=== PATIENT | female | born 2000 | race Caucasian/White ===

== ENCOUNTER 2023-10-27 12:03 | Emergency (ER) | payer BC, SELFPAY ==
[2023-10-27 12:13] VITALS: BP 121/73; PULSE 87; RESP 16; TEMP 36.3; O2SAT 98; BMI 34.4
--- NOTE | 2023-10-27 12:31 | ED_ITS ---
HPI - General Adult General Chief complaint: Urogenital Problems, Female Stated complaint: IUD falling out Time Seen by Provider: 10/27/23 12:10 History of Present Illness HPI narrative: Patient is a 23 year white female who had an IUD placed in 2021, a ParaGard copper type. The patient reported she noticed strings and has had some abnormal menstrual bleeding today and had some lower abdominal discomfort will last couple of days, she noticed this IUD strings that were external to her labial area. She would like to keep the IUD if she could. I discussed with Dr. Freddy Rao who recommended ultrasound to confirm placement. And this will be ordered. Related Data Home Medications Medication Instructions Recorded Confirmed levothyroxine 50 mcg tablet 50 mcg PO DAILY 05/21/23 05/21/23 sertraline 50 mg tablet mg PO 05/21/23 05/21/23 spironolactone 50 mg tablet 50 mg PO DAILY 05/21/23 05/21/23 bupropion HCl 75 mg tablet 75 mg PO DAILY 10/27/23 10/27/23 Previous Rx's Medication Instructions Recorded amoxicillin 500 mg capsule 1,000 mg (2 x 500 mg) PO QDAY #20 05/21/23 caps Allergies Allergy/AdvReac Type Severity Reaction Status Date / Time gluten Allergy Unknown Verified 10/27/23 12:17 Review of Systems Status of ROS: Reports: 6 or more systems reviewed and unremarkable except as noted in History and below [facility] Social History Smoking Status: Never smoker How often do you have a drink containing alcohol: monthly or less How often do you have six or more drinks on one occasion: Never AUDIT-C Alcohol total score: 1 Non-prescribed substance use: denies use Exam Narrative: Exam Narrative: Objective: Vital signs are within normal limits Bimanual exam with nurse Keren present, reveals palpable strings in the vaginal area. I do not see any external strength. She is having her menstrual cycle. The patient has no marked uterine tenderness. Const: Vital Signs, click to edit/add: Vital Signs - 24 hr 10/27/23 12:13 Temperature 97.4 F L Pulse Rate [Pulse Oximeter] 87 Respiratory Rate 16 Blood Pressure [Ri ght Upper Arm] 121/73 Pulse Oximetry 98 Oxygen Delivery Me thod Room Air Course Vital Signs Vital signs: Initial Vital Signs Temperature 97.4 F L 10/27/23 12:13 Temperature Source Temporal Artery Scan 10/27/23 12:13 Pulse Rate 87 10/27/23 12:13 Respiratory Rate 16 10/27/23 12:13 Blood Pressure 121/73 10/27/23 12:13 Blood Pressure Mean 89 10/27/23 12:13 Blood Pressure Position Sitting 10/27/23 12:13 Pulse Oximetry 98 10/27/23 12:13 Oxygen Delivery Method Room Air 10/27/23 12:13 Vital Signs Temperature 97.4 F L 10/27/23 12:13 Pulse Rate 87 10/27/23 12:13 Respiratory Rate 16 10/27/23 12:13 Blood Pressure 121/73 10/27/23 12:13 Pulse Oximetry 98 10/27/23 12:13 Oxygen Delivery Method Room Air 10/27/23 12:13 Temperature 97.4 F L 10/27/23 12:13 Pulse Rate 87 10/27/23 12:13 Respiratory Rate 16 10/27/23 12:13 Blood Pressure 121/73 10/27/23 12:13 Pulse Oximetry 98 10/27/23 12:13 Oxygen Delivery Method Room Air 10/27/23 12:13 Medical Decision Making MDM Narrative Medical decision making narrative: [age] year white female with an IUD present concerned about it is changing position or perhaps coming out. At this point discussed with OB specialist Dr. Ebonie Rao who recommended ultrasound and this will be ordered. Depending on placement. Will get a consult from OBGYN. Addendum 12:49 p.m. the patient has part of IUD in the lower uterine segment and part in the cervix. Discussed with Dr. Tyler Rao and she will come by in likely remove the IUD. Addendum 1:31 p.m.: The patient had the IUD removed by Dr. Tyler Rao. Tolerated this well. Rest observation at home. Dr. Tyler Rao recommended a test at home. They will be discharged home follow-up with digital content coordinator doctors as needed. Discharge Plan Discharge Clinical Impression: IUD complication Patient Disposition: Home w/ Parent or Adult Condition: Improved Additional Instructions: Follow-up as per appellate court clerk recommendation. Light activity, Advil as needed. Dr. Hayes recommended usual home test. Follow-up with digital content coordinator or primary care as needed for discussion of further contraceptive issues Activity Level: Light activity Discharge Diet: Regular Prescriptions: No Action sertraline 50 mg tablet PO levothyroxine 50 mcg tablet 50 mcg PO DAILY spironolactone 50 mg tablet 50 mg PO DAILY amoxicillin 500 mg capsule 1,000 mg PO QDAY Qty: 20 0RF bupropion HCl 75 mg tablet 75 mg PO DAILY Follow Up/Referrals: Analy Lee [email or web address] [Primary Care Provider] - Stand Alone Forms: [employer] Info Instructions
--- NOTE | 2023-10-27 12:31 | CRLHL7_ITS ---
For Patients: As a result of the Century Cures Act, medical imaging exams and procedure reports are released immediately into your electronic medical record. You may view this report before your referring provider. If you have questions, please contact your health care provider. INDICATION: Assess IUD position. TECHNIQUE: Transabdominal and endovaginal grayscale and color Doppler pelvic ultrasound COMPARISON: None. FINDINGS: Uterus: Uterus measures 4.0 x 3.3 x 7.2 cm in transverse, AP and craniocaudad dimensions, respectively. T-shaped IUD located within the lower uterine segment. The left short arm of the IUD may be embedded within the myometrium of the lower uterine segment. This is suggested on the coronal 3D image of the uterus (image 17). Endometrium: Transvaginal imaging was performed to better evaluate the endometrium. Endometrial thickness measures 4 mm. No sign of endometrial mass or fluid. Right ovary measures 2.2 x 1.5 x 2.7 cm (5 mL).. Left ovary measures 2.3 x 2.0 x 3.3 cm (8 mL).. Bilateral ovarian color Doppler flow. Cul-de-sac: No significant free fluid. IMPRESSION: Abnormal position of the IUD. The stem of the IUD ends in the lower uterine segment. The left short arm of the IUD may be imbedded within the myometrium of the left lateral lower uterine segment. Dictated by Tyler Valentin MD @ 10/27/2023 1:49:10 PM (Electronically Signed)
--- OUTSIDE RECORDS SUMMARY | 2023-10-27 13:21 | XMS_ITS | Clinical Summary ---
Author Name Unknown Organization [facility] [place], [place] [address] Care Team Providers Care Manager Retail Name Role Phone Analy Lee Primary Care Provider Allergies Active Allergy Reactions Criticality Noted Date Comments Gluten Other - Describe In Comment Field 07/14/2018 Sensitivity, diarrhea and nausea Medications Medication Sig Dispensed Refills Start Date End Date Status albuterol HFA (VENTOLIN HFA) 90 mcg/actuation inhalerIndications :Mild intermittent asthma without complication Inhale 2 Puffs by mouth 4 times daily if needed. HOLD until patient calls 1 Inhaler 2 08/21/2016 Active montelukast (Singulair) 10 mg tabletIndications: Mild intermittent asthma without complication Take 1 Tablet (10 mg) by mouth at bedtime. 90 Tablet 3 04/28/2023 Active sertraline (ZOLOFT) 50 mg tabletIndications: Social anxiety disorder,ELIOT (generalized anxiety disorder),Depressi on, unspecified depression type Take 1.5 Tablets (75 mg) by mouth once daily. 135 Tablet 3 04/28/2023 Active spironolactone (ALDACTONE) 50 mg tabletIndications: Acne, unspecified acne type Take 1 Tablet (50 mg) by mouth once daily. 90 Tablet 2 06/22/2023 Active tretinoin (RETIN-A) 0.025 % 0.025 % creamIndications:A cne, unspecified acne type Apply topically to affected area(s) at bedtime. 135 g 3 06/22/2023 Active levothyroxine (SYNTHROID) 50 mcg tabletIndications: Hypothyroidism (acquired) TAKE 1 TABLET(50 MCG) BY MOUTH BEFORE BREAKFAST 90 Tablet 2 07/28/2023 Active buPROPion (WELLBUTRIN XL) 150 mg Extended-Release tabletIndications: Depression, major, single episode, moderate (HC) Take 1 Tablet (150 mg) by mouth every morning. 90 Tablet 0 09/15/2023 Active buPROPion 75 mg tabletIndications: Depression, major, single episode, moderate (HC) Take 1 Tablet (75 mg) by mouth once daily. Based on updated ISMP guidelines, DO NOT crush or chew. 14 Tablet 0 09/15/2023 3 Discontinue d(*Medicati on adjustment) Active Problems Problem Noted Date Diagnosed Date Pap smear for cervical cancer screening 02/02/20 Overview: 02/2022 NIL. Plan: Pap due 02/2025 ELIOT (generalized anxiety disorder) 07/02/2016 Social anxiety disorder 07/02/2016 Depression 07/02/2016 Mild intermittent asthma without complication Environmental allergies Overview: Dog cats horse rabbits Encounters Date Type Department Care Team Description 10/27/2023 Nurse Triage [facility] [address] [place] [address] Analy Lee PA Contraception Concern 09/26/2023 Refill [facility] [address] [place] [address] Analy Lee PA Refill Request (Bupropion) 09/15/2023 1:40 PM WATCH AND CLOCK MAKER AND REPAIRER Office Visit [facility] [address] [place] [address] Analy Lee PA Medication Management (zoloft); Weight (Feels stuck) 09/15/2023 Travel 07/28/2023 Refill [facility] [address] [place] [address] Analy Lee PA Refill Request (Levothyroxine) from Last 3 Months Immunizations Name Administration Dates Next Due DTP 2001,2001,2001 DTaP 2001,2001,2001 HIB-HepB (Comvax) 2001,2001 HPV 9 (Gardasil 9) 08/26/2016,09/19/2015 Hepatitis A (Peds) 09/19/2015,10/20/2012, 013 Hepatitis B, Unspecified 02/23/2002 Human Papilloma Virus Vaccine 10/20/2012 Inactivated Polio Vaccine 2001,2001, 2001 Influenza A (H1N1), Inactivated 08/14/2009 Influenza Virus, Unspecified 07/07/2019 Influenza, IIV3 (Age 6-35 mos) 07/28/2011 Influenza, IIV3 (Age >=3 years) 07/28/2012,11/04 Influenza, IIV4 07/31/2021, 8,08/26/2016,09/19,08/29/2014 Influenza, IIV4 (=>6mos) MDV 07/21/2017 MMR, Unspecified 03/05/2006,02/23/2002 Meningococcal Vaccine (Menveo) 07/26/2019,2014 Oral Polio Vaccine 03/05/2006 Pneumococcal conj 7-Valent (Prevnar 7) 2,2001,2001 Polio Virus, Unspecified 03/05/2006 Tdap 07/28/2012 Varicella Vaccine 06/07/2009,05/12/2005 Family History Medical History Relation Name Comments Good Health Brother 1 Good Health Brother 2 Asthma Father Asthma Mother Allergies Sister seasonal Relation Name Status Comments Brother 1 Alive Brother 2 Alive Father Alive Mother Alive Sister Alive Social History Tobacco Use Types Packs/Day Years Used Date Smoking Tobacco: Never Smokeless Tobacco: Never Tobacco Cessation:Counseling Given: Yes Comments:No exposure Alcohol Use Standard Drinks/Week Comments No 0 (1 standard drink = 0.6 oz pur e alcohol) PHQ-2 Answer Date Recorded PHQ-2 TOTAL SCORE 0 04/28/2023 Social Connections Answer Date Recorded Frequency of Communication with Friends and Fami ly 0 09/15/2023 Financial Resource Strain Answer Date R ecorded Difficulty of Paying Living Expenses 3 09/15/2023 Difficulty of Paying Living Expenses Not on file 09/15/2023 Food Insecurity Answer Date Recorded Worried About Running Out of Food in the Last Ye ar 1 09/15/2023 Transportation Needs Answer Date Record ed Lack of Transportation (Medical) 1 09/15/2023 Housing Stability Answer Date Recorded Unable to Pay for Housing in the Last Year 1 09/15/2023 Sex and Gender Information Value Date Recorded Sex Assigned at Female 10/14/2020 11:42 AM WATCH AND CLOCK MAKER AND REPAIRER Gender Identity Female 10/14/2020 11:42 AM WATCH AND CLOCK MAKER AND REPAIRER Sexual Orientation Straight 10/14/2020 11 :42 AM WATCH AND CLOCK MAKER AND REPAIRER Obstetrics History Last Filed Vital Signs Vital Sign Reading Time Taken Comments Blood Pressure 113/75 09/15/2023 1:44 PM WATCH AND CLOCK MAKER AND REPAIRER Pulse 81 09/15/2023 1:44 PM WATCH AND CLOCK MAKER AND REPAIRER Temperature 36.9 ??C (98.4 ??F) 11/26/2020 9:50 AM CS T Respiratory Rate 14 11/24/2016 12:58 PM WATCH AND CLOCK MAKER AND REPAIRER Oxygen Saturation 97% 02/04/2022 1:44 PM CDT Inhaled Oxygen Concentration - - Weight 92.5 kg (204 lb) 09/15/2023 1:44 PM WATCH AND CLOCK MAKER AND REPAIRER Height 165.9 cm (5' 5.32) 09/15/2023 1:44 PM CS T Body Mass Index 33.62 09/15/2023 1:44 PM WATCH AND CLOCK MAKER AND REPAIRER Plan of Treatment Health Maintenance Due Date Last Done Comments Pneumococcal series for age 6-64 (1 of 2 - PCV) 2007 2001, 2001, 2001 Hepatitis C screening for ag e 18-79 2019 Tetanus booster 07/28/2022 07/28/2012 Chlamydia for age 16-24 03/03/2023 03/03/20 22, 10/31/2019, 07/26/2019, Additional history exists Influenza for age 9-49 06/04/2023 , 07/07/2019, 09/01/2018, Additional history exists Depression screening for age 12+ 04/28/2024 04/28/2023, 02/04/2022, 02/04/2022, Additional history exists BMI (ht and wt on same day) for age 18+ 09/15/2024 09/15/2023, 04/28/2023, 03/03/2022, Additional history exists Pap test for age 21-65 03/03/2025 03/03/2022 Tdap Completed 07/28/2012 HPV series for age 9-26 Completed 08/26/20 16, 09/19/2015, 10/20/2012, Additional history exists HIV for age 15-65 Completed 07/26/2019 COVID-19 vaccine series Completed 07/26/20, 07/02/2022, 07/31/2021, Additional history exists Care Teams Manager Retail Relationship Specialty Start Date End Date Analy Lee PA [address] [place] [address] PCP - General Family Practice 10/16/16
== END 2023-10-27 13:39 | disposition home or self-care (01) ==
PROVIDERS: Emergency Provider Family Medicine; PCP Physician Assistant Medical
DX: T83.32XA Displacement of intrauterine contraceptive device, initial encounter (principal)
CPT/HCPCS: 76830; 99283; 99284

== ENCOUNTER 2025-09-01 10:59 | Outpatient (CLI) | payer BC, SELFPAY | END 2025-09-01 11:00 | disposition home or self-care (01) | LOC: NFLDUCREF 11:08 | PROVIDERS: PCP Physician Assistant Medical | DX: R30.0 Dysuria (principal) | CPT/HCPCS: 87086 ==